=== PATIENT | female | born 1990 ===

== ENCOUNTER 2025-03-24 09:00 | Day surgery (SDC) | payer OTHER ==
[2025-03-18 10:38] LABS: ALT/SGPT 23.0 U/L (12-78); AST/SGOT 15.0 U/L (15-37); BILIRUBIN TOTAL 1.15 mg/dL (0.3-1.2); BUN CREA RATIO 22.0 (7.0-25.0); CREATININE SERUM 0.51 mg/dL (0.55-1.02); GFR 138.04; GLOBULINA 3.1 G/DL (2.4-3.5); GLUCOSE FASTING 82.0 mg/dL (65-100); OSMOLALITY SERUM 282.0 MOSM/KG (275-295)
[2025-03-18 12:20] LABS: URINE APPEARANCE Clear; URINE BACTERIA 43.1 uL (0.0-1933); URINE BILIRRUBIN Negative (NEGATIVE); URINE BLOOD Small; URINE COLOR Yellow; URINE EPITHELIAL CELLS 23.5 uL (0.0-38.8); URINE GLUCOSE Negative (NEGATIVE); URINE KETONE Negative (NEGATIVE); URINE LEUKOCYTE Negative; URINE NITRATE Negative; URINE PROTEIN Negative (NEGATIVE); URINE RBC 13.1 uL (0.0-20.8); URINE UROBILINOGEN 0.2 E.U./dl; URINE WBC 4.9 uL (0.0-23.2)
[2025-03-18 12:22] LABS: INR 1.01
[2025-03-18 12:25] LABS: URINE CAST 0.00 uL (0.0-1.40)
[2025-03-18 13:08] LABS: BASO % 0.6 % (0.1-1.2); EOS # 0.06 (0.04-0.54); EOS % 1.3 % (0.7-7.0); LYMPH # 1.37 (1.18-3.74); LYMPH % 28.8 % (19.3-53.1); MEAN PLATELET VOLUME 12.60 fl (9.4-12.4); MONO # 0.39 (0.24-0.82); MONO % 8.2 % (4.7-12.5); NEUT # 2.89 (1.56-6.13); NEUT % 60.9 % (34.0-71.1); RED CELL DISTRIBUTION WIDTH 12.9 % (11.6-14.4)
[2025-03-18 14:52] VITALS: BP 108/73
[~2025-03-24] VITALS: Ht 165.1 cm; Wt 77.1 kg
[~2025-03-24 09:00] MED LIST: SYNTHROID75 MCG
[2025-03-24] MEDS ORDERED: POVIDONE-IODINE 118 ML BOTT TOP ONE (10:20)
[2025-03-24] MEDS ORDERED: KETOROLAC TROMETHAMINE 30 MG VIAL IV ONE (11:30)
[2025-03-24] MEDS ORDERED: ONDANSETRON HCL 2 MG/ML VIAL IV ONE (11:30)
== END 2025-03-24 15:30 | disposition home or self-care (01) ==
LOC: CIR.AMB 09:00
PROVIDERS: ATTEND Obstetrics & Gynecology
DX: N84.0 Polyp of corpus uteri (principal); N93.8 Other specified abnormal uterine and vaginal bleeding